=== PATIENT | male | born 1965 | race Caucasian/White ===

== ENCOUNTER 2017-01-21 05:25 | Emergency (ER) | payer OTHER ==
[~2017-01-21] VITALS: Ht 180.3 cm; Wt 120.0 kg
[2017-01-21 05:40] VITALS: BP 166/103; PULSE 92; RESP 20; TEMP 98.1; O2SAT 97
[2017-01-21] MEDS ORDERED: TETANUS/DIPHTHERIA TOXOID ADULT 0.5 ML VIAL IM ONE (05:45)
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
[2017-01-21] MEDS ORDERED: LIDOCAINE 2%/EPINEPHrine 1:100,000 30ML MDV INFIL ONE (06:15)
[2017-01-21] MEDS ORDERED: LIDOCAINE 1%/EPINEPHrine 1:100,000 SOLN 30 ML VIAL ONE (06:16)
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
[2017-01-21] MEDS ORDERED: LIDOCAINE 2%/EPINEPHrine 1:100,000 50ML MDV ONE (06:34)
[2017-01-21 06:43] LABS: AUTOMATED NEUTROPHIL # 4.5 TH/MM3 (1.8-7.7); BASOPHIL # 0.1 TH/MM3 (0-0.2); BASOPHIL % 0.8 % (0.0-2.0); EOSINOPHIL # 0.1 TH/MM3 (0-0.4); EOSINOPHIL % 1.4 % (0.0-4.0); HEMATOCRIT 45.7 % (39.0-51.0); LYMPH % 22.2 % (9.0-44.0); LYMPHOCYTE # 1.5 TH/MM3 (1.0-4.8); MEAN CELL VOLUME 96.9 FL (80.0-100.0); MEAN CORPUSCULAR HEMOGLOBIN 34.8 PG (27.0-34.0); MEAN CORPUSCULAR HGB CONC 35.9 % (32.0-36.0); MONO % 10.2 % (0.0-8.0); NEUT % 65.4 % (16.0-70.0); PLATELET COUNT 165 TH/MM3 (150-450); RED BLOOD COUNT 4.72 MIL/MM3 (4.50-5.90); RED CELL DISTRIBUTION WIDTH 14.3 % (11.6-17.2)
[2017-01-21 06:54] LABS: HEMO FLAGS AUTO DIFF
[2017-01-21 07:01] LABS: BICARBONATE 26.5 MEQ/L (21.0-32.0); POTASSIUM 3.8 MEQ/L (3.5-5.1)
[2017-01-21 07:34] VITALS: BP 140/89; PULSE 80; RESP 18; O2SAT 97
[2017-01-21 07:35] LABS: SCAN/DIFF AUTO DIFF CONFIRMED
== END 2017-01-21 07:35 | disposition home or self-care (01) ==
LOC: NEPC 05:25
DX: S01.81XA Laceration without foreign body of other part of head, initial encounter (principal); S09.90XA Unspecified injury of head, initial encounter; F10.929 Alcohol use, unspecified with intoxication, unspecified; V00.831A Fall from motorized mobility scooter, initial encounter; Y93.I9 Activity, other involving external motion
CPT/HCPCS: 12011; 70450; 70486; 72125; 80048; 80307; 85025; 90471; 90714